=== PATIENT | female | born 1980 | race Two or more races ===

== ENCOUNTER 2024-07-25 18:27 | Emergency (ER) | payer MEDICAID, OTHER ==
[~2024-07-25] VITALS: Ht 165.1 cm; Wt 125.0 kg
[2024-07-25] MEDS: ALBUTEROL SULF 2.5 MG/0.5ML(0.5%) NEB SOLN NEB ONE (20:30)
[2024-07-25 20:38] VITALS: BP 120/63; PULSE 75; RESP 16; TEMP 98.4; O2SAT 98
[2024-07-25] MEDS: methylPREDNISolone SOD SUCC 125 MG/2 ML VL IM ONE (20:44)
[2024-07-25 21:20] LABS: Urine Bacteria FEW /hpf (None Seen); Urine Blood Negative /uL (Negative); Urine Clarity Clear (Clear); Urine Color Yellow (Yellow); Urine Mucus FEW (None Seen); Urine Protein, UAD Negative (Negative); Urine Specific Gravity 1.029 (1.001-1.035); Urine Urobilinogen Normal (Negative); Urine WBC 1 /hpf (0 - 5); Urine pH 5.5 (5.0-9.0)
[2024-07-25] MEDS ORDERED: METH4PAK PO (21:21)
[2024-07-25] MEDS ORDERED: AZIT500T66 PO (21:21)
[2024-07-25] MEDS ORDERED: AZITTAB PO (21:21)
[2024-07-25 21:29] LABS: Amphetamine Screen, Urine Neg (NEGATIVE); Benzodiazephine Screen, Urine Neg (NEGATIVE)
[2024-07-25 21:30] LABS: Barbiturate Scree,Urine Neg (NEGATIVE); Cannabinoid Screen, Urine Neg (NEGATIVE); Cocaine Screen, Urine Neg (NEGATIVE); Opiate Scree,Urine Neg (NEGATIVE); Phencyclidine Screen, Urine Neg (NEGATIVE)
== END 2024-07-25 21:37 | disposition home or self-care (01) ==
LOC: ER 18:27
DX: J06.9 Acute upper respiratory infection, unspecified (principal); Z79.899 Other long term (current) drug therapy
CPT/HCPCS: 80307; 81001; 93005; 94640; 96372; 99284; J2919